=== PATIENT | male | born 1970 | race Caucasian/White ===

== ENCOUNTER 2016-11-06 04:01 | Emergency (ER) | payer OTHER ==
[~2016-11-06] VITALS: Ht 182.9 cm; Wt 125.0 kg
[~2016-11-06 04:01] MED LIST: BACT800T5 PO; CLIN1CAP5 PO; GLUCTAB PO; LISI10TA PO; LORTA5 PO; METO50TA PO; SYNT75TA PO
[2016-11-06 04:06] VITALS: BP 106/59; PULSE 73; RESP 18; TEMP 97.5; O2SAT 94
[2016-11-06] MEDS ORDERED: METO50TA PO (04:15)
[2016-11-06] MEDS ORDERED: METF1000 PO (04:15)
[2016-11-06] MEDS ORDERED: LIDOCAINE HCL 1% 50 ML VIAL INFIL ONE (04:15)
[2016-11-06] MEDS ORDERED: SODIUM CHLOR 0.9% 1000 ML INJ 1,000 ML IV ONE (04:15)
[2016-11-06] MEDS ORDERED: LEVO75TA3 PO (04:15)
[2016-11-06] MEDS ORDERED: LISI10TA PO (04:15)
[2016-11-06 04:24] VITALS: BP 78/42; PULSE 74; RESP 18; O2SAT 94
--- NOTE | 2016-11-06 04:29 | PD ---
HPI Chief Complaint: Syncope/Near-Syncope Time Seen by Provider: 04:10 Travel History International Travel<30 days: No Contact w/Intl Traveler<30days: No Traveled to known affect area: No History of Present Illness HPI This is a 46-year-old man who presents to the emergency department with injuries after a syncopal episode. He was drinking at the bar. He reports having a couple beers and a shot of whiskey. He went to stand up from the stool and felt lightheaded and dizzy. He went to walk outside and collapse. He banged up his face. He complains of some pain in his face and jaw, as well as some mild headache. No neck pain. EMS reports that initially he appeared pale: Diaphoretic. Initially the connected a radial pulse. Blood pressures were then in the 90s. He improved with some IV fluids. He has no history of previous similar symptoms. Patient states she otherwise has been feeling generally well. He does have a history of hypertension diabetes and hypothyroidism, as well as vertical sleeve gastrectomy for bariatric surgery about a year ago. History Past Medical History Narrative Medical Hypertension Diabetes Hypothyroidism History of vertical sleeve gastrectomy 2015 Social History Alcohol Use: Yes (OCCASIONALLY) Tobacco Use: Yes (1 & 1/2 PPD) Allergies-Medications (Allergen,Severity, Reaction): Coded Allergies: Penicillin (Verified Allergy, Unknown, UNKNOWN, 11/06/16) PT STATES FAMILY ALLERGY Reported Meds & Prescriptions Reported Meds & Active Scripts Active Reported Levothyroxine (Levothyroxine Sodium) 75 Mcg Tab 75 Mcg PO DAILY Metoprolol Tartrate 50 Mg Tab 50 Mg PO BID Metformin (Metformin HCl) 1,000 Mg Tab 1,000 Mg PO BIDPC With meals Lisinopril-Hctz 10-12.5 Mg Tab 1 Tab PO BID Review of Systems Except as stated in HPI: all other systems reviewed are Neg Physical Exam Narrative GENERAL: 46-year-old man, appears a little bit unwell, multiple facial abrasions. SKIN: Focused skin assessment warm/dry. HEAD: Atraumatic. Normocephalic. EYES: Pupils equal and round. No scleral icterus. No injection or drainage. ENT: There is an abrasion and avulsion to the bridge of his nose. There is a small abrasion to his philtrum of his upper lip. There is a through and through laceration to the skin surface of the lower lip. NECK: No midline tenderness. Full painless range of motion. CARDIOVASCULAR: Regular rate and rhythm. No murmur appreciated. RESPIRATORY: No accessory muscle use. Clear to auscultation. Breath sounds equal bilaterally. GASTROINTESTINAL: Abdomen soft, non-tender, nondistended. Hepatic and splenic margins not palpable. MUSCULOSKELETAL: No obvious deformities. No edema. NEUROLOGICAL: Awake and alert. No obvious cranial nerve deficits. Motor grossly within normal limits. Normal speech. PSYCHIATRIC: Appropriate mood and affect; insight and judgment normal. Data Data Last Documented VS Vital Signs Date Time Temp Pulse Resp B/P Pulse Ox O2 Delivery O2 Flow Rate FiO2 11/06/16 04:51 74 18 116/63 98 Nasal Cannula 2 11/06/16 04:[address] Brain W/O Iv Contrast(Rout) (11/06/16 ) Ct Cerv Spine W/O Contrast (11/06/16 ) Ct Facial Bones W/O Iv Cont (11/06/16 ) Iv Access Insert/Monitor (11/06/16 04:10) Complete Blood Count With Diff (11/06/16 04:10) Comprehensive Metabolic Panel (11/06/16 04:10) Alcohol (Ethanol) (11/06/16 04:10) Sodium Chlor 0.9% 1000 Ml Inj (Ns 1000 M (11/06/16 04:15) Lidocaine 1% Inj (50 Ml) (Xylocaine 1% I (11/06/16 04:15) Troponin I (11/06/16 04:10) Chest, Single Ap (11/06/16 ) Radiology Film Requests (11/06/16 ) Morphine Inj (Morphine Inj) (11/06/16 06:45) Labs Laboratory Tests Test 11/06/16 04:15 White Blood Count 12.8 TH/MM3 Red Blood Count 5.32 MIL/MM3 Hemoglobin 17.4 GM/DL Hematocrit 49.2 % Mean Corpuscular Volume 92.5 FL Mean Corpuscular Hemoglobin 32.7 PG Mean Corpuscular Hemoglobin 35.4 % Concent Red Cell Distribution Width 13.0 % Platelet Count 158 TH/MM3 Mean Platelet Volume 9.9 FL Neutrophils (%) (Auto) 59.0 % Lymphocytes (%) (Auto) 28.5 % Monocytes (%) (Auto) 10.7 % Eosinophils (%) (Auto) 1.5 % Basophils (%) (Auto) 0.3 % Neutrophils # (Auto) 7.5 TH/MM3 Lymphocytes # (Auto) 3.6 TH/MM3 Monocytes # (Auto) 1.4 TH/MM3 Eosinophils # (Auto) 0.2 TH/MM3 Basophils # (Auto) 0.0 TH/MM3 CBC Comment DIFF FINAL Differential Comment Sodium Level 135 MEQ/L Potassium Level 3.2 MEQ/L Chloride Level 105 MEQ/L Carbon Dioxide Level 17.7 MEQ/L Anion Gap 12 MEQ/L Blood Urea Nitrogen 13 MG/DL Creatinine 1.01 MG/DL Estimat Glomerular Filtration 80 ML/MIN Rate Random Glucose 75 MG/DL Calcium Level 7.9 MG/DL Total Bilirubin 0.4 MG/DL Aspartate Amino Transf 24 U/L (AST/SGOT) Alanine Aminotransferase 23 U/L (ALT/SGPT) Alkaline Phosphatase 68 U/L Troponin I LESS THAN 0.02 NG/ML Total Protein 6.3 GM/DL Albumin 3.4 GM/DL Ethyl Alcohol Level 86 MG/DL [place] Medical Decision Making Medical Screen Exam Complete: Yes Emergency Medical Condition: Yes Interpretation(s) My review of EKG: Normal sinus rhythm at a rate of 74, normal axis, normal intervals, right bundle branch block pattern, no acute ischemia. LABS: CBC remarkable for mild leukocytosis. CMP. Unremarkable. Troponin. Negative Alcohol. [address]: Normal examination except for question possible fracture of the left mandibular condyle. CT facial bones: Oblique fracture to the left mandibular condyle. Fracture through the anterior wall of the external auditory canal. Cervical spine CT: Normal examination. Differential Diagnosis Vasovagal episode, GI bleed, dehydration, intoxication, other Narrative Course Medical decision making INITIAL: 46-year-old man, drinking, lightheaded dizziness syncopal episode associated with hypotension and some facial injuries. Etiology unclear. EKG is overall unremarkable. We'll check labs, x-ray, reassess. FINAL: Patient with displacement regular condyle fracture in the left foot fracture through the anterior aspect of the bony ear canal. No on-call for face or plastics. I spoke with Dr. Smith, on-call for ENT. Unable to assist. Spoke with [facility] transfer center. I spoke with Dr. Nba Mullen for trauma, and Dr. Samaniego with facial surgery. Will accept the patient in transfer. Diagnosis Primary Impression: Mandible fracture Disposition: 70 TRANSFER TO OTHER FACILITY Johnathan Multani MD Nov 06, 2016 04:29
[2016-11-06 04:38] LABS: AUTOMATED NEUTROPHIL # 7.5 TH/MM3 (1.8-7.7); BASOPHIL % 0.3 % (0.0-2.0); EOSINOPHIL # 0.2 TH/MM3 (0-0.4); EOSINOPHIL % 1.5 % (0.0-4.0); HEMATOCRIT 49.2 % (39.0-51.0); HEMO FLAGS DIFF FINAL; LYMPH % 28.5 % (9.0-44.0); LYMPHOCYTE # 3.6 TH/MM3 (1.0-4.8); MEAN CELL VOLUME 92.5 FL (80.0-100.0); MEAN CORPUSCULAR HEMOGLOBIN 32.7 PG (27.0-34.0); MEAN CORPUSCULAR HGB CONC 35.4 % (32.0-36.0); MONO % 10.7 % (0.0-8.0); PLATELET COUNT 158 TH/MM3 (150-450); RED BLOOD COUNT 5.32 MIL/MM3 (4.50-5.90); WHITE BLOOD COUNT 12.8 TH/MM3 (4.0-11.0)
--- NOTE | 2016-11-06 04:50 | RADRPT ---
EXAM DATE/TIME: 11/06/2016 04:37 [facility] COMPARISON: CT BRAIN W/O CONTRAST, October 04, 2010, 19:22. INDICATIONS : Trauma, fell and hit head. ETOH. RADIATION DOSE: 42.33 CTDIvol (mGy) MEDICAL HISTORY : Hypertension. Diabetes mellitus type 2. SURGICAL HISTORY : None. ENCOUNTER: Initial ACUITY: 1 day PAIN SCALE: 6/10 LOCATION: cranial TECHNIQUE: Multiple contiguous axial images were obtained of the head. Using automated exposure control and adj ustment of the mA and/or kV according to patient size, radiation dose was kept as low as reasonably a chievable to obtain optimal diagnostic quality images. DICOM format image data is available electro nically for review and comparison. FINDINGS: CEREBRUM: The ventricles are normal for age. No evidence of midline shift, mass lesion, hemorrhage or acute in farction. No extra-axial fluid collections are seen. POSTERIOR FOSSA: The cerebellum and brainstem are intact. The 4th ventricle is midline. The cerebellopontine angle i s unremarkable. EXTRACRANIAL: The visualized portion of the orbits is intact. The left mandibular condyle is deformed compared to t he right new since 2010. Correlate for left mandible condyle fracture SKULL: The calvaria is intact. No evidence of skull fracture. CONCLUSION: Normal examination except for questionable fracture of the left mandibular condyle. Johnathan Mondragon MD on November 06, 2016 at 4:48 Board Certified Radiologist. This report was verified electronically.
[2016-11-06 04:51] VITALS: BP 116/63; PULSE 74; RESP 18; O2SAT 98
--- NOTE | 2016-11-06 05:00 | RADRPT ---
EXAM DATE/TIME: 11/06/2016 04:37 [facility] COMPARISON: No previous studies available for comparison. INDICATIONS : Trauma, fell and hit head. RADIATION DOSE: 24.68 CTDIvol (mGy) MEDICAL HISTORY : Hypertension. Diabetes mellitus type 2. SURGICAL HISTORY : None. ENCOUNTER: Initial ACUITY: 1 day PAIN SCALE: 3/10 LOCATION: neck TECHNIQUE: Volumetric scanning of the cervical spine was performed. Multiplanar reconstructions in the sagittal, coronal and oblique axial planes were performed. Using automated exposure control and adjustment o f the mA and/or kV according to patient size, radiation dose was kept as low as reasonably achievable to obtain optimal diagnostic quality images. DICOM format image data is available electronically f or review and comparison. FINDINGS: VERTEBRAE: Normal vertebral body height. ALIGNMENT: No evidence of subluxation. C2-C3: The bony spinal canal is normal in size. No evidence of disc bulge or herniation. The neural forami na are bilaterally patent. C3-C4: The bony spinal canal is normal in size. No evidence of disc bulge or herniation. The neural forami na are bilaterally patent. C4-C5: The bony spinal canal is normal in size. No evidence of disc bulge or herniation. The neural forami na are bilaterally patent. C5-C6: The bony spinal canal is normal in size. No evidence of disc bulge or herniation. The neural forami na are bilaterally patent. C6-C7: The bony spinal canal is normal in size. No evidence of disc bulge or herniation. The neural forami na are bilaterally patent. C7-T1: The bony spinal canal is normal in size. No evidence of disc bulge or herniation. The neural forami na are bilaterally patent. CONCLUSION: Normal examination. Johnathan Mondragon MD on November 06, 2016 at 4:59 Board Certified Radiologist. This report was verified electronically.
--- NOTE | 2016-11-06 05:04 | RADRPT ---
EXAM DATE/TIME: 11/06/2016 04:37 [facility] COMPARISON: No previous studies available for comparison. INDICATIONS : Trauma, fell and hit head. Laceration to chin. RADIATION DOSE: 64.27 CTDIvol (mGy) MEDICAL HISTORY : Hypertension. Diabetes mellitus type 2. SURGICAL HISTORY : None. ENCOUNTER: Initial ACUITY: 1 day PAIN SCORE: 1/10 LOCATION: facial TECHNIQUE: Volumetric scanning of the facial bones was performed. Using automated exposure control and adjustme nt of the mA and/or kV according to patient size, radiation dose was kept as low as reasonably achiev able to obtain optimal diagnostic quality images. DICOM format image data is available electronicall y for review and comparison. FINDINGS: There is an oblique fracture through left mandibular condyle. There is a fracture through the anteri or wall of the external auditory canal. ORBITS: The orbital and infraorbital osseous structures are intact. The retroconal structures have a normal configuration. No radiopaque foreign bodies are seen. NASAL BONE: The nasal bone and maxillary spine are intact ZYGOMATIC ARCHES: Symmetric without evidence of fracture. SINUSES: The maxillary, ethmoid and frontal sinuses are intact. No air-fluid levels seen. NASAL CAVITY: The nasal septum is intact and midline. The lacrimal ducts are intact. SOFT TISSUES: No radiopaque foreign bodies seen. No soft-tissue swelling is seen. INTRACRANIAL: No intracranial air seen. CRIBIFORM PLATE: Grossly intact. CONCLUSION: Oblique fracture of the left mandibular condyle which is slightly anteriorly displaced, beginning me dially at the neck. Also non displaced fracture of the posterior wall of the bony fossa. Johnathan Mondragon MD on November 06, 2016 at 5:00 Board Certified Radiologist. This report was verified electronically.
[2016-11-06 05:09] LABS: ANION GAP 12 MEQ/L (5-15); AST (GOT) 24 U/L (15-37); BICARBONATE 17.7 MEQ/L (21.0-32.0); BLOOD UREA NITROGEN 13 MG/DL (7-18); CHLORIDE 105 MEQ/L (98-107); GLOMERULAR FILTRATION RATE 80 ML/MIN (>89); POTASSIUM 3.2 MEQ/L (3.5-5.1); SODIUM (NA) 135 MEQ/L (136-145)
[2016-11-06 05:10] LABS: ALT (GPT) 23 U/L (12-78)
[2016-11-06 05:14] LABS: ALKALINE PHOSPHATASE 68 U/L (45-117); TOTAL BILIRUBIN ADULT 0.4 MG/DL (0.2-1.0)
--- NOTE | 2016-11-06 05:50 | PD ---
Physical Exam Time Seen by Provider: 05:49 Data Data Last Documented VS Vital Signs Date Time Temp Pulse Resp B/P Pulse Ox O2 Delivery O2 Flow Rate FiO2 11/06/16 04:51 74 18 116/63 98 Nasal Cannula 2 11/06/16 04:[address] Brain W/O Iv Contrast(Rout) (11/06/16 ) Ct Cerv Spine W/O Contrast (11/06/16 ) Ct Facial Bones W/O Iv Cont (11/06/16 ) Iv Access Insert/Monitor (11/06/16 04:10) Complete Blood Count With Diff (11/06/16 04:10) Comprehensive Metabolic Panel (11/06/16 04:10) Alcohol (Ethanol) (11/06/16 04:10) Sodium Chlor 0.9% 1000 Ml Inj (Ns 1000 M (11/06/16 04:15) Lidocaine 1% Inj (50 Ml) (Xylocaine 1% I (11/06/16 04:15) Troponin I (11/06/16 04:10) Labs Laboratory Tests Test 11/06/16 04:15 White Blood Count 12.8 TH/MM3 Red Blood Count 5.32 MIL/MM3 Hemoglobin 17.4 GM/DL Hematocrit 49.2 % Mean Corpuscular Volume 92.5 FL Mean Corpuscular Hemoglobin 32.7 PG Mean Corpuscular Hemoglobin 35.4 % Concent Red Cell Distribution Width 13.0 % Platelet Count 158 TH/MM3 Mean Platelet Volume 9.9 FL Neutrophils (%) (Auto) 59.0 % Lymphocytes (%) (Auto) 28.5 % Monocytes (%) (Auto) 10.7 % Eosinophils (%) (Auto) 1.5 % Basophils (%) (Auto) 0.3 % Neutrophils # (Auto) 7.5 TH/MM3 Lymphocytes # (Auto) 3.6 TH/MM3 Monocytes # (Auto) 1.4 TH/MM3 Eosinophils # (Auto) 0.2 TH/MM3 Basophils # (Auto) 0.0 TH/MM3 CBC Comment DIFF FINAL Differential Comment Sodium Level 135 MEQ/L Potassium Level 3.2 MEQ/L Chloride Level 105 MEQ/L Carbon Dioxide Level 17.7 MEQ/L Anion Gap 12 MEQ/L Blood Urea Nitrogen 13 MG/DL Creatinine 1.01 MG/DL Estimat Glomerular Filtration 80 ML/MIN Rate Random Glucose 75 MG/DL Calcium Level 7.9 MG/DL Total Bilirubin 0.4 MG/DL Aspartate Amino Transf 24 U/L (AST/SGOT) Alanine Aminotransferase 23 U/L (ALT/SGPT) Alkaline Phosphatase 68 U/L Troponin I LESS THAN 0.02 NG/ML Total Protein 6.3 GM/DL Albumin 3.4 GM/DL Ethyl Alcohol Level 86 MG/DL [facility] Medical Record Reviewed: Yes Supervised Visit with REBECCA: No Procedures Procedure Narrative LACERATION LOCATION: Inferior lip through and through LENGTH: 2 cm NUMBER OF STITCHES/CARMELINA: 5 Prolene and 4 Vicryl REPAIR: The area of the laceration was prepped with Betadine and sterilely draped. The laceration was infiltrated with 1% lidocaine with epinephrine. The wound was copiously irrigated and explored without evidence of foreign body , tendon injury or neurovascular injury. The wound was closed using 5-0 Prolene and 4-0 Vicryl. This was a double layer repair. A sterile dressing was applied. The patient was advised to keep the dressing clean and dry. Patient tolerated the procedure well. Brielle Bhatia Nov 06, 2016 05:50
[2016-11-06] MEDS ORDERED: MORPHINE SULFATE 4 MG/ML INJ IV PUSH ONE (06:45)
--- NOTE | 2016-11-06 06:51 | RADRPT ---
EXAM DATE/TIME: 11/06/2016 06:29 [facility] COMPARISON: CHEST SINGLE AP, April 01, 2014, 1:56. INDICATIONS : Rib pain. Fainted at 's work this morning. MEDICAL HISTORY : Diabetes mellitus type II. SURGICAL HISTORY : None. ENCOUNTER: Initial ACUITY: 1 day PAIN SCORE: 9/10 LOCATION: Bilateral chest Across Lower ribs FINDINGS: A single view of the chest demonstrates the lungs to be symmetrically aerated without evidence of mas s, infiltrate or effusion. The cardiomediastinal contours are unremarkable. Osseous structures are intact. CONCLUSION: Normal examination. Johnathan Mondragon MD on November 06, 2016 at 6:49 Board Certified Radiologist. This report was verified electronically.
[2016-11-06 07:23] VITALS: BP 136/70; PULSE 84; RESP 13; O2SAT 98
--- NOTE | 2016-11-06 15:00 | EKG ---
Date Performed: 11/06/2016 Time Performed: 08:02:11 PTAGE: 46 years EKG: Right ventricular conduction disturbance Since PREVIOUS TRACING , QRS is slightly narrower, otherwise no significant change. PREVIOUS TR ACING 11/06/2016 DOCTOR: Mundo Fisher Interpretating Date/Time 11/06/2016 14:59:43
--- NOTE | 2016-11-06 15:00 | EKG ---
Date Performed: 11/06/2016 Time Performed: 04:07:01 PTAGE: 46 years EKG: Incomplete right bundle branch block Since PREVIOUS TRACING , no significant change. PREVIOUS TRACIN04/01/2014 07.34 DOCTOR: Mundo Fisher Interpretating Date/Time 11/06/2016 14:58:44
== END 2016-11-06 09:27 | disposition short-term general hospital (02) ==
LOC: NEPC 04:01
DX: S02.612A Fracture of condylar process of left mandible, initial encounter for closed fracture (principal); S01.511A Laceration without foreign body of lip, initial encounter; F17.200 Nicotine dependence, unspecified, uncomplicated; W19.XXXA Unspecified fall, initial encounter; Y93.01 Activity, walking, marching and hiking; Y92.89 Other specified places as the place of occurrence of the external cause; Z79.899 Other long term (current) drug therapy
CPT/HCPCS: 12051; 70450; 70486; 71010; 72125; 80053; 80307; 84484; 85025; 93005; 96361; 96374; 99285; J2270; J7030